=== PATIENT | male | born 1955 | race Hispanic/Latino ===

== ENCOUNTER 2017-09-07 07:00 | Day surgery (SDC) | payer OTHER ==
[~2017-09-07] VITALS: Ht 175.3 cm; Wt 87.5 kg
[~2017-09-07 07:00] MED LIST: ADULT LOW DOSE81 MG PO; CIALIS20 MG PO; FLOMAX0.4 MG PO; HYDROCORTISONE1.5 GM TOP; IBUPROFEN200 MG PO; LAMISIL250 MG PO; TAMSULOSIN HCL0.4 MG PO
--- NOTE | 2017-09-07 14:25 | NUR ---
PT UNABLE TO SPEAK [place]UVIAN-INTERETER PRESENT. NO REQUESTS, WILL FOLLOW NEEDED
--- NOTE | 2017-09-07 17:07 | OR ---
[facility] [address], [place] [address] Signed DATE OF OPERATION: 09/07/2017 SURGEON: Mike Chirinos MD COLONOSCOPY REPORT PREOPERATIVE DIAGNOSIS: Screening. POSTOPERATIVE DIAGNOSES: 1. 4 mm polyp in cecum. 2. 4 mm polyp at 60 cm. 3. Minimal internal hemorrhoids. PROCEDURE: Colonoscopy with hot biopsy. ESTIMATED BLOOD LOSS: None. INDICATIONS: Ruslan is a 61-year-old speaking gentleman asked to see me for his initial screening colonoscopy. He has no lower GI complaints. There is no family history of colon cancer or polyps. I met with Ruslan and the auto garage attendant in the office. I gave them pamphlets written in [place] regarding colonoscopy. Our bowel prep instructions were also written in [place]. We looked at that together. He understands the nature of the test along with the risks including, but not limited to gas bloating, crampy abdominal pain, bleeding, perforation requiring surgery, and missed diagnosis. He also understands the need for IV conscious sedation. He expressed understanding and wished to proceed. PROCEDURE NOTE: Ruslan was taken into our endoscopy suite and placed in the left lateral decubitus position. He was given 8 mg of Versed and 200 mcg of fentanyl for the procedure. A digital rectal exam was performed and he has very minimal external hemorrhoid tissue. The adult colonoscope was then introduced and advanced all the way around into the cecum under direct visualization of camera without difficulty. His prep was good. He had a tiny polyp in the cecum as well as at 60 cm. Both were removed with hot biopsy forceps. There was no diverticulosis. The rectum was unremarkable. The prostate was unremarkable. Upon retroflexion of scope, he has minimal internal hemorrhoid columns. After this, the gas was suctioned out. The colonoscope removed. Ruslan tolerated the procedure quite well. RECOMMENDATIONS: I will see Ruslan back in my office in 7 to 14 days to review his results. Electronically Signed By: MIKE CHIRINOS MD 09/07/17 1707 PATIENT NAME: RUSLAN MIJARES OPERATIVE REPORT DATE OF : 51 PHYSICIAN: MIKE CHIRINOS MD REPORT #: [id number] REPORT IS CONFIDENTIAL AND NOT TO BE RELEASED WITHOUT AUTHORIZATION [address] [address] Signed MD CHARISSE Colindres/ANGEL /[id number] cc: MD Lisandro Colindres PA-C Electronically Signed By: MIKE CHIRINOS MD 09/07/17 1707 PATIENT NAME: RUSLAN MIJARES OPERATIVE REPORT DATE OF : 51 PHYSICIAN: MIKE CHIRINOS MD REPORT #: [id number] REPORT IS CONFIDENTIAL AND NOT TO BE RELEASED WITHOUT AUTHORIZATION
== END 2017-09-07 09:50 | disposition home or self-care (01) ==
LOC: DS 07:00
PROVIDERS: Colon & Rectal Surgery
PROC: 0DBE8ZX Excision of Large Intestine, Via Natural or Artificial Opening Endoscopic, Diagnostic (ICD-10-PCS; 2017-09-07)
PROC: 0DBH8ZX Excision of Cecum, Via Natural or Artificial Opening Endoscopic, Diagnostic (ICD-10-PCS; principal; 2017-09-07 08:15)
DX: Z12.11 Encounter for screening for malignant neoplasm of colon (principal); D12.0 Benign neoplasm of cecum; D12.6 Benign neoplasm of colon, unspecified; K64.8 Other hemorrhoids; N52.9 Male erectile dysfunction, unspecified; N40.0 Benign prostatic hyperplasia without lower urinary tract symptoms; F17.210 Nicotine dependence, cigarettes, uncomplicated; Z79.82 Long term (current) use of aspirin; Z79.899 Other long term (current) drug therapy; Z98.890 Other specified postprocedural states
CPT/HCPCS: 99152; 99153; J2250; J3010; J7120